=== PATIENT | female | born 1980 | race Caucasian/White ===

== ENCOUNTER 2017-01-25 22:48 | Emergency (ER) | payer OTHER, BC ==
[~2017-01-25] VITALS: Ht 162.6 cm; Wt 85.5 kg
[~2017-01-25 22:48] MED LIST: CHILD ASPIRIN81 M1 PO; ENOXAPARIN40 MG/0.4 SC; LABETALOL HCL200 MG PO; PRENATAL TABLE1 EAC3 PO; SERTRALINE HCL100 MG PO
[2017-01-25 23:50] VITALS: BP 142/96
== END 2017-01-26 00:41 | disposition home or self-care (01) ==
LOC: EME 22:48
DX: G43.909 Migraine, unspecified, not intractable, without status migrainosus (principal); I10 Essential (primary) hypertension; Z79.82 Long term (current) use of aspirin
CPT/HCPCS: 99281; 99284; J1200; J1885; J2765; J7030